=== PATIENT | male | born 1965 | race Caucasian/White ===

== ENCOUNTER → 2017-01-20 | Outpatient (CLI) | payer BC ==
[~2017-01-20] MED LIST: GASTROGRAFIN SOLUTION 30ML (Q9963) As Ordered ONE; ISOVUE-370 76% 100ML VIAL (Q9967) As Ordered ONE
--- NOTE | 2017-01-21 05:40 | REP ---
Clinical: History small cell lung cancer for reevaluation. Technique: Axial contrast enhanced images from the lung bases to the pubic symphysis using oral and 100 ml Isovue 370 intravenous contrast material with precontrast and delayed images of the abdomen as well as coronal and sagittal re-formations. Comparison: 08/17/2016. Findings: There is a new 9 mm nodule in the left lower lobe (image 5) and a new 8 mm nodule in the right lower lobe (image 10) compatible with metastatic disease. Liver, spleen, pancreas, gallbladder, bilateral adrenal glands and kidneys are normal. The enteric system is without obstruction or acute inflammatory process. Pelvis demonstrates normal bladder and age appropriate prostate/seminal vesicles. No intraperitoneal or retroperitoneal adenopathy. Small hiatal hernia. No ascites. No free air. Vasculature is normal. Surrounding musculoskeletal structures intact and without focal osseous abnormality. Impression: Two presumed metastatic foci in the lung bases. No acute intra-abdominal or pelvic pathology appreciated. Signed by Anderson Diego MD 01/21/2017 05:31 A
--- NOTE | 2017-01-21 05:50 | REP ---
Clinical: Non-small cell lung cancer for follow up. Technique: Axial contrast enhanced images from the thoracic inlet to the upper abdomen using 100 ml Isovue 370 intravenous contrast material with coronal and sagittal re-formations. Comparison: 08/17/2016. Findings: The large previously identified posterior left paramediastinal upper lung lesion currently measures approximately 8.0 x 5.7 x 4.1 cm and may be slightly decreased in size from prior examination. A large right suprahilar paramediastinal lesion is considerably increased in size measuring 5.6 x 5.6 x 5.2 cm. Innumerable scattered bilateral satellite metastatic foci are also identified - the largest of which measures 2 cm in the right upper lobe. Hilar adenopathy noted. No pleural effusion/reaction. Heart/pericardium and thoracic aorta appear normal. There is attenuation/narrowing to the right upper lobe pulmonary artery, left upper lobe pulmonary artery and possible intraluminal extension of the right suprahilar mass lesion into the superior vena cava (image 36). Surrounding musculoskeletal structures appear intact and normal. [id number] identified in the right anterior chest wall extending into the SVC/right atrium. Impression: Increased neoplastic loaded as described above including possible intraluminal extension into the superior vena cava. Signed by Anderson Diego MD 01/21/2017 05:42 A
== END ==
LOC: M RAD 13:45
PROVIDERS: ATTEND Internal Medicine
DX: C34.92 Malignant neoplasm of unspecified part of left bronchus or lung (principal)
CPT/HCPCS: 71260; 74178; Q9963; Q9967